=== PATIENT | female | born 1990 | race Caucasian/White ===

== ENCOUNTER 2016-04-16 | Outpatient (CLI) | END 2016-04-16 13:59 | disposition EMS.NT ==

== ENCOUNTER 2016-04-19 | Outpatient (CLI) | END 2016-04-19 20:15 | disposition critical access hospital (66) | CPT/HCPCS: A0425; A0429 ==

== ENCOUNTER 2016-04-19 20:33 | Emergency (ER) | payer BC, MEDICAID ==
[2016-04-20] MEDS ORDERED: BENZOCAINE/TETRACAINE/BUTAMBEN SPRAY 56 GM ONE (05:17)
[2016-04-20] MEDS ORDERED: AMOX/CLAV 875 MG/125 MG TABLET PO ONE (05:32)
[2016-04-20] MEDS ORDERED: IBUPROFEN 600 MG TABLET PO ONE (05:33)
== END 2016-04-20 13:20 | disposition home or self-care (01) ==
DX: F32.9 Major depressive disorder, single episode, unspecified (principal); R45.851 Suicidal ideations; F10.229 Alcohol dependence with intoxication, unspecified; Y90.8 Blood alcohol level of 240 mg/100 ml or more; S41.112A Laceration without foreign body of left upper arm, initial encounter; X78.9XXA Intentional self-harm by unspecified sharp object, initial encounter; F17.200 Nicotine dependence, unspecified, uncomplicated
CPT/HCPCS: 36415; 80053; 80306; 80307; 80320; 80329; 81003; 81025; 83690; 84443; 99284; A9270